=== PATIENT | male | born 1960 | race Caucasian/White ===

== ENCOUNTER 2017-06-20 20:22 | Inpatient (IN) | payer OTHER ==
[~2017-06-20] VITALS: Ht 172.7 cm; Wt 71.3 kg
[2017-06-20 23:00] VITALS: Ht 172.7 cm; Wt 71.3 kg
[2017-06-20] MEDS ORDERED: LOSA100T7 PO (23:03)
[2017-06-20 23:05] VITALS: BP 165/69; PULSE 70; RESP 20
[2017-06-20] MEDS ORDERED: NITROGLYCERIN (SL) 0.4 MG TAB SL PRN (23:30)
[2017-06-20] MEDS ORDERED: morphine 2 MG INJ IV PRN (23:30)
[2017-06-20] MEDS ORDERED: ONDANSETRON 4 MG INJ IV PRN (23:30)
[2017-06-20] MEDS ORDERED: ACETAMINOPHEN 325 MG TAB PO PRN (23:30)
[2017-06-20 23:35] VITALS: BP 155/70; RESP 20
[2017-06-20] MEDS: LOSARTAN 50 MG TAB PO SCH (23:46)
[2017-06-20] MEDS: METOPROLOL 25 MG TAB PO SCH (23:47)
[2017-06-21] VITALS (7 sets, daily range): BP systolic 140–188; BP diastolic 72–94; PULSE 52–83; RESP 18–20
[2017-06-21 00:16] LABS: CREATINE KINASE 59 IU/L (23-200)
[2017-06-21 00:33] LABS: CK-MB 1.29 ng/ml (0.0-2.4); TROPONIN-I < 0.012 ng/ml (0.00-0.12)
[2017-06-21] MEDS: LOSARTAN 50 MG TAB PO SCH (08:25)
[2017-06-21] MEDS: METOPROLOL 25 MG TAB PO SCH (08:27)
[2017-06-21] MEDS ORDERED: REGADENOSON 0.4 MG/5 ML SYG ONE (09:00)
[2017-06-21] MEDS ORDERED: ASPIRIN (EC) 81 MG TAB PO SCH (09:00)
[2017-06-21 09:15] LABS: BASOPHILS % 0.3 % (0.0-2.0); EOSINOPHILS # 0.2 10^3/ul (0.0-0.5); HEMOGLOBIN 15.4 g/dl (14.0-18.0); LYMPHOCYTES # 2.4 10^3/ul (0.8-2.9); LYMPHOCYTES % 30.8 % (15.0-51.0); MEAN CORPUSCULAR HEMOGLOBIN 35.6 pg (29.0-33.0); MEAN CORPUSCULAR HGB CONC 34.2 g/dl (32.0-37.0); MEAN CORPUSCULAR VOLUME 104.2 fl (82.0-101.0); MEAN PLATELET VOLUME 10.4 fl (7.4-10.4); MONOCYTE # 0.9 10^3/ul (0.3-0.9); MONOCYTES % 11.1 % (0.0-11.0); NEUTROPHIL # 4.2 10^3/ul (1.6-7.5); NEUTROPHILS % 54.5 % (39.0-77.0); PLATELET COUNT 300 10^3/UL (140-415); RED BLOOD COUNT 4.32 10^6/ul (4.70-6.10); RED CELL DISTRIBUTION WIDTH 11.3 % (11.5-14.5); WHITE BLOOD COUNT 7.6 10^3/ul (4.8-10.8)
--- NOTE | 2017-06-21 09:54 | CONS ---
Date/Time of Note Date/Time of Note DATE: 06/21/17 TIME: 09:50 Assessment/Plan Assessment/Plan Additional Assessment/Plan Chest pain Hypertension Active tobacco use -Patient with chest discomfort after an argument with his . Troponins have remained negative, ECG with no significant ischemic abnormalities. Patient planned for nuclear cardiac perfusion study and echocardiogram today. Continue losartan as renal function and blood pressure permits, continue aspirin therapy. Consultation Date/Type/Reason Admit Date/Time Jun 20, 2017 at 22:17 Type of Consultation: cv Reason for Consultation Chest pain Hx of Present Illness This is a 57-year-old male with past medical history of hypertension and active tobacco use who presents with chest discomfort. Symptoms began after a disagreement with his significant other. Patient with intermittent chest pain after that time throughout the evening. There was no associated shortness of breath or diaphoresis. Symptoms continued throughout the day. Because of that , he came to the emergency room for evaluation and care. Activities do not improve or worsen his chest pain. Otherwise prior to this episode, he denies exertional chest pain or shortness of breath, palpitations, dizziness or lightheadedness. He does get occasional symptoms of acid like burning in his abdomen and he is unsure if this is associated with food intake. He does work at a car [employer] and with doing his activities, he denies exertional chest pain or shortness of breath. 12 point review of systems was performed with all pertinent positives and negatives mentioned above and all else is negative Past Medical History Medical History: hypertension Social History Smoking Status: Current every day smoker Other Social History Works at a car [employer] Exam/Review of Systems Vital Signs Vitals Vital Signs Date Time Temp Pulse Resp B/P Pulse Ox O2 Delivery O2 Flow Rate FiO2 06/21/17 08:30 140/79 06/21/17 08:13 55 06/21/17 07:57 Room Air 06/21/17 07:54 97.9 18 98 Intake and Output 06/20/17 06/20/17 06/21/17 15:00 23:00 07:00 Intake Total 400 ml Balance 400 ml Exam No apparent distress Constitutional: alert, oriented, well developed Neck: supple Respiratory: clear to auscultation, normal air movement Cardiovascular: other (S1-S2 heard, no murmurs appreciated), regular rate and rhythm Gastrointestinal: bowel sounds, non-tender, soft Extremities: other (No edema) Results Result Diagram: 06/21/17 08 Results 24 hrs Laboratory Tests Test 06/20/17 23:50 06/21/17 08:22 Creatine Kinase 59 Creatine Kinase Index 2.2 Creatinine Kinase MB (Mass) 1.29 Troponin I < 0.012 White Blood Count 7.6 Red Blood Count 4.32 L Hemoglobin 15.4 Hematocrit 45.0 Mean Corpuscular Volume 104.2 H Mean Corpuscular Hemoglobin 35.6 H Mean Corpuscular Hemoglobin Concent 34.2 Red Cell Distribution Width 11.3 L Platelet Count 300 Mean Platelet Volume 10.4 Neutrophils % 54.5 Lymphocytes % 30.8 Monocytes % 11.1 H Eosinophils % 3.0 Basophils % 0.3 Nucleated Red Blood Cells % 0.0 Neutrophils # 4.2 Lymphocytes # 2.4 Monocytes # 0.9 Eosinophils # 0.2 Basophils # 0.0 Nucleated Red Blood Cells # 0.0 Medications Medications Current Medications Aspirin (Halfprin) 81 mg DAILY PO Last administered on 06/21/17 08:25; Admin Dose 81 MG; Start 06/21/17 at 09:00 Acetaminophen (Tylenol Tab) 650 mg Q6H PRN PO PAIN AND OR ELEVATED TEMP; Start 06/20/17 at 23:30 Ondansetron HCl (Zofran Inj) 4 mg Q4H PRN IV NAUSEA AND/OR VOMITING; Start at 23:30 Losartan Potassium (Cozaar) 50 mg BID PO Last administered on 06/21/17 08:25 ; Admin Dose 50 MG; Start 06/20/17 at 23:20 Metoprolol Tartrate (Lopressor) 25 mg BID PO Last administered on 06/21/17 08 :27; Admin Dose 25 MG; Start 06/20/17 at 23:22 Nitroglycerin (Nitroglycerin (Sl Tab) 0.4 Mg) 1 tab Q5M PRN SL ANGINA; Start 06/20/17 at 23:30 Morphine Sulfate (morphine) 2 mg Q4H PRN IV pain; Start 06/20/17 at 23:30 Procedures Procedures ECG with sinus bradycardia, normal QRS duration, nonspecific ST abnormalities Jaden Bojorquez DO Jun 21, 2017 09:54
[2017-06-21 09:59] LABS: ANION GAP 13 (8-16); BLOOD UREA NITROGEN 20 mg/dl (7-20); CALCIUM 9.8 mg/dl (8.4-10.2); CARBON DIOXIDE 26 mmol/L (21-31); CHLORIDE 107 mmol/L (97-110); CHOL/HDL RATIO 3.4 RATIO; CHOLESTEROL 138 mg/dl (100-200); CREATINE KINASE 47 IU/L (23-200); CREATININE 0.88 mg/dl (0.61-1.24); GLUCOSE 109 mg/dl (70-220); HDL CHOLESTEROL 40 mg/dl (28-71); PHOSPHORUS 3.7 mg/dl (2.5-4.9); POTASSIUM 4.3 mmol/L (3.5-5.1); SODIUM 142 mmol/L (135-144); TRIGLYCERIDES 63 mg/dl (0-149)
[2017-06-21 10:15] LABS: TROPONIN-I < 0.012 ng/ml (0.00-0.12)
--- NOTE | 2017-06-21 11:23 | RADRPT ---
Echocardiogram Report Patient Name: ALMITA DOMINIQUE Gender: Male Date: 1960 Study Date: 21-Jun-2017 Mental Hygiene Consultant: Evangelista Heck [facility] Location: 5551 Ref. Physician: EVA SWANSON Quality: Adequate Procedures: Transthoracic echocardiogram with complete 2D, M-Mode, and doppler examination. Indications: Chest Pain. 2D/M Mode Doppler Measurement Value Normal Ranges Measurement Value Normal Ranges LVIDd 2D 4.4 3.5 - 5.6 cm AV Peak Andres 1.4 m/sec LVIDs 2D 2.4 2.1 - 4.1 cm AV Peak PG 7.7 mmHg LVPWd 2D 0.9 0.6 - 1.1 cm LVOT Peak Andres 1.2 m/sec IVSd 2D 1.0 0.6 - 1.1 cm LVOT Peak PG 5.8 mmHg AoR Diam 2D 2.9 2.0 - 3.7 cm MV E Peak Andres 0.8 m/sec EDV 2D 87.2 cm3 MV A Peak Andres 0.9 m/sec ESV 2D 14.3 cm3 MV E/A 0.9 LA Dimen 2D 2.6 2.3 - 4.0 cm MV Decel Time 202 msec MV Decel Medina 4 MV E/A 0.9 TR Peak Andres 2.3 m/sec TR Peak PG 21.7 mmHg RVSP 25.0 mmHg Findings Left Ventricle: Normal left ventricular systolic function. Normal left ventricular cavity size. Normal left ventricular wall thickness. Ejection fraction is visually estimated at 65 %. Tissue Doppler/Mitral Doppler indices are consistent with impaired relaxation (Stage I diastolic dysfunction). Right Ventricle: Normal right ventricular size. Normal right ventricular systolic function. Left Atrium: The left atrium is normal in size. Right Atrium: The right atrium is normal in size. Mitral Valve: Normal appearance of the mitral valve. Mild mitral annular calcification. Trace mitral regurgitation. Aortic Valve: No significant aortic stenosis or insufficiency. Aortic cusps appear mildly calcified. Tricuspid Valve: Normal appearance of the tricuspid valve. Estimated peak PA systolic pressure 25 mmHg. There is trace tricuspid regurgitation. Pulmonic Valve: Normal pulmonic valve appearance. Pericardium: Normal pericardium with no significant pericardial effusion. Aorta: Normal aortic root. IVC: Normal size and normal respiratory collapse consistent with normal right atrial pressure. Conclusions Normal left ventricular systolic function. Normal left ventricular cavity size. Normal left ventricular wall thickness. Ejection fraction is visually estimated at 65 %. Tissue Doppler/Mitral Doppler indices are consistent with impaired relaxation (Stage I diastolic dysfunction). Normal right ventricular size. Normal right ventricular systolic function. The left atrium is normal in size. The right atrium is normal in size. No significant valvular stenosis or regurgitation seen. Normal pericardium with no significant pericardial effusion. Electronically Signed By: Jaden Bojorquez 21-Jun-2017 11:22:03 -0800 Patient Name: ALMITA DOMINIQUE Study Date: 21-Jun-2017 [id number]
--- NOTE | 2017-06-21 11:40 | RADRPT ---
PROCEDURE: Lexiscan myocardial perfusion study CLINICAL INDICATION: 57 -year-old patient complaining of chest pain. TECHNIQUE: Lexiscan 0.4 mg intravenously separate acquisition gated myocardial perfusion SPECT usi ng Tc 99m Myoview 31.4 mCi intravenously at stress and Tc-99m Myoview, 10.2 mCi intravenously at res t was performed using the rest/stress sequence. Poststress Myoview SPECT images were obtained in th e supine position. COMPARISON: No prior studies. FINDINGS: Perfusion images reveal mild nonreversible perfusion abnormality in the inferior wall. Lexiscan post stress gated SPECT images demonstrate no wall motion abnormalities. IMPRESSION: 1. No evidence of stress-induced ischemia. 2. No wall motion abnormalities. 3. The left ventricle ejection fraction at stress is 53%. A call report was made to Dr. Bojorquez at 11:39 a.m. on June 21, 2017. RPTAT: HH .Qian Metz MD, MD Date Time Electronically viewed and signed by .Qian Metz MD, on 06/21/2017 11:39 .L/
--- NOTE | 2017-06-21 12:45 | EN ---
Date/Time of Note Date/Time of Note DATE: 06/21/17 TIME: 12:43 Event Note Cardiology Cardiology Event Note Stephanie scan ECG report 06/21/17 57 y/o male with chest pain Baseline ECG sb @ 52bpm,no ST-T wave abnormalities Baseline BP 172/86 Lexiscan administered as per protocol Symptoms abdominal discomfort Peak HR 73 Peak blood pressure 172/86 ECG no significant changes ECG interpretation non-ischemic Jaden Bojorquez DO Jun 21, 2017 12:45
--- NOTE | 2017-06-21 13:16 | HP ---
Date/Time of Note Date/Time of Note DATE: 06/21/17 TIME: 12:38 Assessment/Plan VTE Prophylaxis VTE Prophylaxis Intervention: LMWH Lines/Catheters IV [facility] Saline Lock Assessment/Plan Assessment/Plan 57-year-old male with: 1. Atypical chest pain based on history, cardiac enzymes negative, EKG stable, however with hypertension and tobacco use as risk factors therefore stress test was done this morning that came back negative 2D echocardiogram within normal. Plan was to discharge patient but he left AGAINST MEDICAL ADVICE right after his stress test and before results were available. 2. Hypertension: Resume home losartan at discharge 3. Tobacco use: Heavy with no intention to quit. Prophylaxis: Pepcid for GI prophylaxis, Lovenox for DVT prophylaxis Disposition: Plan was to discharge home if stress is negative but the patient left AGAINST MEDICAL ADVICE prior to stress test results being available. In either way stress test was negative. 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 He was transferred to [facility] for cardiology workup. Upon transfer, patient denies any chest pain, nausea or vomiting. He did not take his blood pressure medication therefore he was restarted on blood pressure medication upon arrival, cardiac enzymes were negative total 3, EKG unchanged at outside hospital and unchanged also here. His discomfort has been resolved. Patient underwent stress test this morning along with echocardiogram. Echocardiogram is within normal. After the stress test upon arrival to the floor he left without the nurses knowledge, I was called a few minutes later and notified that the patient left AGAINST MEDICAL ADVICE. Stress test came back negative nonetheless and the plan was to discharge him home anyway to resume his home medications as noncompliance is very likely. ROS Constitutional: no complaints Eyes: no complaints Cardiovascular: other (Chest discomfort) Gastrointestinal: no complaints Genitourinary: no complaints Musculoskeletal: no complaints Skin: no complaints Neurologic: no complaints Psychological: no complaints PMH/Family/Social Past Medical History Hypertension Heavy tobacco use Medical History: hypertension Past Surgical History Past Surgical Hx: no surgical history Social History Alcohol Use: none Smoking Status: Current every day smoker Drug Use: none Exam/Review of Systems Vital Signs Vitals Vital Signs Date Time Temp Pulse Resp B/P Pulse Ox O2 Delivery O2 Flow Rate FiO2 06/21/17 11:12 Room Air 06/21/17 08:30 140/79 06/21/17 08:13 55 06/21/17 07:54 97.9 18 98 Intake and Output 06/20/17 06/20/17 06/21/17 14:59 22:59 06:59 Intake Total 400 ml Balance 400 ml Exam Constitutional: alert, oriented, well developed Respiratory: clear to auscultation, normal air movement Cardiovascular: nl pulses, regular rate and rhythm Gastrointestinal: non-tender, soft Musculoskeletal: nl extremities to inspection Extremities: normal pulses Neurological: LINE SERVER II-XII intact, nl mental status, nl speech Labs Result Diagram: 06/21/1782106/21/17821 Medications Medications Current Medications Aspirin (Halfprin) 81 mg DAILY PO Last administered on 06/21/17 08:25; Admin Dose 81 MG; Start 06/21/17 at 09:00 Acetaminophen (Tylenol Tab) 650 mg Q6H PRN PO PAIN AND OR ELEVATED TEMP; Start 06/20/17 at 23:30 Ondansetron HCl (Zofran Inj) 4 mg Q4H PRN IV NAUSEA AND/OR VOMITING; Start at 23:30 Losartan Potassium (Cozaar) 50 mg BID PO Last administered on 06/21/17 08:25 ; Admin Dose 50 MG; Start 06/20/17 at 23:20 Metoprolol Tartrate (Lopressor) 25 mg BID PO Last administered on 06/21/17 08 :27; Admin Dose 25 MG; Start 06/20/17 at 23:22 Nitroglycerin (Nitroglycerin (Sl Tab) 0.4 Mg) 1 tab Q5M PRN SL ANGINA; Start 06/20/17 at 23:30 Morphine Sulfate (morphine) 2 mg Q4H PRN IV pain; Start 06/20/17 at 23:30 SAQIB SWANSON Jun 21, 2017 13:09
--- NOTE | 2017-06-23 16:09 | RADRPT ---
Vent Rate: 62 bpm RR Interval: 0 msec NV Interval: 136 msec QRS Duration: 96 msec QT Interval: 418 msec QTC Interval: 424 msec P-R-T [place]: 76 - 77 - 83 degrees Normal sinus rhythm Normal ECG Electronically Signed By: Caleb Leavitt [id number]
== END 2017-06-21 13:25 | disposition home or self-care (01) | DRG 313 ==
LOC: MS4 22:17
PROVIDERS: ADMIT Internal Medicine; ATTEND Internal Medicine
DX: R07.9 Chest pain, unspecified (principal); I10 Essential (primary) hypertension; Z72.0 Tobacco use; Z79.82 Long term (current) use of aspirin
CPT/HCPCS: 78452; 80048; 80061; 82550; 82553; 83735; 84100; 84484; 85025; 93005; 93017; 93306; A9500; A9505; J2785